=== PATIENT | male | born 1975 | race Caucasian/White ===

== ENCOUNTER 2019-01-11 13:07 | Emergency (ER) | payer OTHER ==
[~2019-01-11] VITALS: Ht 177.8 cm; Wt 76.9 kg
--- OUTSIDE RECORDS SUMMARY | ~2019-01-11 | XMS | Clinical Summary ---
Demographics + + + | Address | [address] | | | [place] [address] | + + + | Home Phone | | + + + | Preferred Language | Unknown | + + + | Marital Status | Single | + + + | Buddhism Affiliation | NON | + + + | Race | White | + + + | Ethnic Group | Not or | + + + Author + + + | Author | [facility] | + + + | Organization | [facility] | + + + | Address | Unknown | + + + | Phone | Unavailable | + + + Support + + +---------+ + | Name | Relationship | Address | Phone | + + +---------+ + | trent arrington | ECON | Unknown | | + + +---------+ + Care Team Providers + +------+ + | Care Tank Builder Supervisor Name | Role | Phone | + +------+ + | Breanna Weeks MD | PP | | + +------+ + Source Comments FROILAN is fully live on both [facility] Ambulatory and [facility] InPatient.[facility] Allergies + + + + + + | Active Allergy | Reactions | Severity | Noted | Comments | | | | | Date | | + + + + + + | No Known Allergies | | | 04/29/20 | | | | | | 08 | | + + + + + + Current Medications + + +--------+---------+------+------+-------+ | Prescription | Sig. | Disp. | Refills | Star | End | Statu | | | | | | t | Date | s | | | | | | Date | | | + + +--------+---------+------+------+-------+ | oxyCODONE | Take 1 to 3 tablets | 70 | 0 | 10/2 | | Activ | | (immediate release) | by mouth every three | tablet | | 5/20 | | e | | 5 mg oral | hours as needed for | | | 17 | | | | tabletIndications: | moderate pain. | | | | | | | Loosening of | | | | | | | | hardware in spine | | | | | | | | ([facility]) | | | | | | | + + +--------+---------+------+------+-------+ | senna-docusate | Take 1 tablet by | 30 | 0 | 10/2 | | Activ | | 8.6-50 mg oral | mouth two times | tablet | | 5/20 | | e | | tabletIndications: | daily. | | | 17 | | | | Loosening of | | | | | | | | hardware in spine | | | | | | | | ([facility]) | | | | | | | + + +--------+---------+------+------+-------+ | | take 1 tablet by | | 0 | 10/3 | | Activ | | HYDROcodone-acetamin | mouth every 4 to 6 | | | 0/20 | | e | | ophen 5-325 mg oral | hours if needed | | | 17 | | | | tablet | | | | | | | + + +--------+---------+------+------+-------+ | naproxen 500 mg | take 1 tablet by | | 0 | 10/3 | | Activ | | oral tablet | mouth every 12 hours | | | 0/20 | | e | | | with food | | | 17 | | | + + +--------+---------+------+------+-------+ | mupirocin 2 % | apply topically to | | 0 | 10/3 | | Activ | | topical ointment | affected area three | | | 0/20 | | e | | | times a day for 5 | | | 17 | | | | | days | | | | | | + + +--------+---------+------+------+-------+ Active Problems + + + | Problem | Noted Date | + + + | Tobacco dependence | 06/22/2017 | + + + | Postoperative wound abscess | 05/28/2008 | + + + | ETOH abuse | 04/29/2008 | + + + + + | Overview: Etoh [employer] | + + + + + | Urinary retention | 04/29/2008 | + + + | L 1 compression fracture and L 1 Transverse process fx | 04/28/2008 | + + + | T 7, 9, 12 fractures | 04/28/2008 | + + + | T8 Spinous process fracture | 04/28/2008 | + + + | Dextrocardia | | + + + | Alcohol dependence in remission (HCC) | | + + + Family History Patient is adopted + + +------+ + | Medical History | Relation | Name | Comments | + + +------+ + | Cancer | Father | | | + + +------+ + | Hypertension | Father | | | + + +------+ + | None | Mother | | | + + +------+ + + +------+ + + | Relation | Name | Status | Comments | + +------+ + + | Father | | | | + +------+ + + | Mother | | Alive | | + +------+ + + Social History + + + +--------+------+ | Tobacco Use | Types | Packs/Day | Years | Date | | | | | Used | | + + + +--------+------+ | Current Every Day | Cigarettes | 0.5 | 6 | | | Smoker | | | | | + + + +--------+------+ + +---+---+---+ | Smokeless Tobacco: | | | | | Never Used | | | | + +---+---+---+ + + | Tobacco Cessation: Ready to Quit: Yes; Counseling Given: Yes | + + + + +---------+ + | Alcohol Use | Drinks/We | oz/Week | Comments | | | ek | | | + + +---------+ + | Yes | | | rarely | + + +---------+ + + + + | Sex Assigned at | Date Recorded | | | | + + + | Not on file | | + + + Last Filed Vital Signs + + + + | Vital Sign | Reading | Time Taken | + + + + | Blood Pressure | 109/96 | 07/10/2017 10:29 AM PST | + + + + | Pulse | 88 | 07/10/2017 10:29 AM PST | + + + + | Temperature | 36.5 C (97.7 F) | 07/10/2017 10:29 AM PST | + + + + | Respiratory Rate | 18 | 07/10/2017 10:29 AM PST | + + + + | Oxygen Saturation | 98% | 06/28/2017 8:06 AM PDT | + + + + | Inhaled Oxygen | - | - | | Concentration | | | + + + + | Weight | 83.9 kg (185 lb) | 07/10/2017 10:29 AM PST | + + + + | Height | 177.8 cm (5' 10") | 07/10/2017 10:29 AM PST | + + + + | Body Mass Index | 26.54 | 07/10/2017 10:29 AM PST | + + + + Plan of Treatment + + + + + | Health Maintenance | Due Date | Last Done | Comments | + + + + + | Pneumococcal (Adult) | | | | | (1 of 1 - PPSV23) | 4 | | | + + + + + | Influenza (Flu) | | | | | vaccination (Season | 9 | | | | Ended) | | | | + + + + + Results Not on filefrom Last 3 Months Insurance + +--------+ +--------+-------+---------+ | Payer | Benefi | Subscriber | Type | Phone | Address | | | t Plan | ID | | | | | | / | | | | | | | Group | | | | | + +--------+ +--------+-------+---------+ | DRIVER STARTING GATE MEDICAID | DRIVER STARTING GATE | xxxxxxxx | Medica | | | | | [place] | | id | | | | | [place] | | | | | + +--------+ +--------+-------+---------+ + +--------+ +--------+ + + | Guarantor Name | Accoun | Relation to | Date | Phone | Billing Address | | | t Type | Patient | of | | | | | | | | | | + +--------+ +--------+ + + | KAREL KING | Person | Self [birth year] Home: | [address] | | [place] | al/Fam | | 1974 | [phone] [place] [address] | | | kennedy | | | [phone] | | + +--------+ +--------+ + + | KAREL KING | Third | Self [birth year] | Home: | [address] | | [place] | Libertarian | | 1974 | [phone] | [place], [place] [address] | | | Liabil | | | [phone] | | | | ity | | | | | + +--------+ +--------+ + +
--- OUTSIDE RECORDS SUMMARY | ~2019-01-11 | XMS | Clinical Summary ---
Demographics + + + | Address | [address] | | | [place] [address] | + + + | Home Phone | | + + + | Preferred Language | Unknown | + + + | Marital Status | Single | + + + | Bahai Affiliation | NON | + + + [...] Team Providers + +------+ + | Care Circuit Board Drafter Name | Role | Phone | + +------+ + | Breanna Weeks MD | PP | | + +------+ + Source Comments FROILAN is fully live on both [facility] Ambulatory and [facility] InPatient.[facility] Allergies + + + + + + [...] | | | | | | | (FORMERLY [facility]) | | | | | | | [...] | | | | | | | ([facility]ERLY [facility]) | | | | | | | [...] + + + | Overview: Etoh [address] MEDIA SERVICES COORDINATOR | + + + + + | [...] | | | + +--------+ +--------+-------+---------+ | RULES EXAMINER MEDICAID | RULES EXAMINER | xxxxxxxx | Medica | | | [...] JAZMIN | al/Fam | | 1974 | [phone] | [place] [address] | | | kennedy | | | [phone] | | + +--------+ +--------+ + + | KAREL KING | Third | Self [birth year] | Home: | [address] | | [place] | Democrat | | 1974 | [phone] | [place], [place] [address] | | | Liabil | | | [phone] | | | | ity | | | | | + +--------+ +--------+ + +
[~2019-01-11 13:07] MED LIST: ANAPROX DS550 MG PO; IBUPROFEN600 MG PO; NORCO 5-325 TA1 EACH PO; PENICILLIN V P500 MG PO; ROBAXIN-750750 MG PO; ZOFRAN ODT4 MG PO
[2019-01-11] MEDS ORDERED: BLEPHAMIDE EYE D5 ML OD (13:47)
== END 2019-01-11 13:55 | disposition home or self-care (01) ==
LOC: ED 13:07
DX: S05.02XA Injury of conjunctiva and corneal abrasion without foreign body, left eye, initial encounter (principal); F17.200 Nicotine dependence, unspecified, uncomplicated; X58.XXXA Exposure to other specified factors, initial encounter
CPT/HCPCS: 99283

== ENCOUNTER 2020-09-27 18:11 | Emergency (ER) | payer OTHER ==
[~2020-09-27] VITALS: Ht 177.8 cm; Wt 76.7 kg
[~2020-09-27 18:11] MED LIST changes: +BLEPHAMIDE EYE D5 ML OD
[2020-09-27] MEDS ORDERED: PENICILLIN V P500 MG PO (18:41)
== END 2020-09-27 18:50 | disposition home or self-care (01) ==
LOC: ED 18:11
DX: K04.7 Periapical abscess without sinus (principal); F17.200 Nicotine dependence, unspecified, uncomplicated; Z79.52 Long term (current) use of systemic steroids
CPT/HCPCS: 99282; A9270

== ENCOUNTER 2023-02-08 15:37 | Emergency (ER) | payer OTHER ==
[~2023-02-08] VITALS: Ht 177.8 cm; Wt 78.9 kg
--- OUTSIDE RECORDS SUMMARY | 2023-02-08 15:47 | XMS ---
PreManage Notification: KAREL KING Security Certified Lactation Counselor Events 1 event(s) in the past 18 months Most recent security events: Elopement at [facility] 03/10/2022 15:50 - Patient eloped before treatment completed. - Patient with suicidal and/or homicidal ideations eloped. - Patient eloped with IV in place. Details: PATIENT LWBS CRITERIA MET - [facility] - 2 Visits in 30 Days CARE PROVIDERS -Jon- Dentist: Coin Machine Mechanic [facility] PHONE: [phone] Aby has no Care Guidelines for this patient. Dez VISIT COUNT (12 MO.) 3 [facility] TOTAL 3 NOTE: Visits indicate total known visits. ED/UCC VISIT TRACKING (12 MO.) 02/08/2023 15:40 [facility] [place] TYPE: Emergency COMPLAINT: - L INDEX FINGER INJURY 01/23/2023 14:31 [facility] [place] TYPE: Emergency COMPLAINT: - BACK PAIN 03/10/2022 15:50 [facility] [place] TYPE: Emergency COMPLAINT: - DIZZINESS INPATIENT VISIT TRACKING (12 MO.) No inpatient visits to display in this time frame [email or web address]
[2023-02-08] MEDS ORDERED: CEPHALEXIN500 M1 PO (21:35)
[2023-02-08 22:04] VITALS: BP 121/89
== END 2023-02-08 22:03 | disposition home or self-care (01) ==
LOC: ED 15:37
DX: S62.631B Displaced fracture of distal phalanx of left index finger, initial encounter for open fracture (principal); W31.2XXA Contact with powered woodworking and forming machines, initial encounter; F17.200 Nicotine dependence, unspecified, uncomplicated; Z23 Encounter for immunization
CPT/HCPCS: 73140; 90715; A9270